=== PATIENT | female | born 1940 | race Caucasian/White ===

== ENCOUNTER → 2021-01-25 | Outpatient (CLI) | payer MEDICARE ==
[2021-01-26 08:14] LABS: HBSAG SCREEN Negative (Negative); HCV AB <0.1 (0.0-0.9); HEP B CORE AB, TOT Negative (Negative); RHEUMATOID ARTHRITIS FACTOR 30.2 IU/mL (0.0-13.9)
[2021-01-27 00:09] LABS: CCP ANTIBODIES IGG/IGA 2 units (0-19)
== END ==
LOC: RAD 09:43
PROVIDERS: Nurse Practitioner Family
DX: Z11.59 Encounter for screening for other viral diseases (principal); M25.572 Pain in left ankle and joints of left foot; M25.571 Pain in right ankle and joints of right foot; D89.9 Disorder involving the immune mechanism, unspecified; R76.8 Other specified abnormal immunological findings in serum; M79.10 Myalgia, unspecified site
CPT/HCPCS: 36415; 73610; 82550; 83520; 85652; 86140; 86200; 86431; 86704; 86803; 87340